=== PATIENT | female | born 1965 | race Caucasian/White ===

== ENCOUNTER 2016-07-10 10:45 | Outpatient (RCR) | payer BC | END 2016-07-25 | disposition home or self-care (01) | LOC: EDBD → PTY 10:45 | PROVIDERS: ATTEND Internal Medicine | DX: M54.5 Low back pain (principal) ==

== ENCOUNTER 2016-07-27 10:50 | Outpatient (RCR) | payer BC | END 2016-08-22 | disposition home or self-care (01) | LOC: PTY 10:50 | PROVIDERS: ATTEND Internal Medicine | DX: M54.5 Low back pain (principal) ==